=== PATIENT | female | born 1965 | race Caucasian/White ===

== ENCOUNTER 2016-11-09 20:20 | Emergency (ER) | payer OTHER ==
[2016-11-09 20:32] VITALS: BMI 18.8
--- NOTE | 2016-11-09 20:35 | PDOC ---
History of Present Illness - General History Source: Patient Exam Limitations: No Limitations - History of Present Illness Initial Comments: 11/09/16 20:51 The patient is a 51 year old female, with no significant past medical history who presents to the emergency department with allergic reaction. The patient reports about 50 min prior to ER arrival eating a dish with brown peanuts. She reports taking 3 benadryls since consuming the dish. She arrives with diffuse itchiness and a sore throat. She denies any abdominal pain. She denies recent fevers, chills, headache or dizziness. She denies recent nausea, vomit, diarrhea or constipation. She denies recent dysuria, frequency, urgency or hematuria. She denies recent chest pain or shortness of breath. PAST MEDICAL HISTORY: See HPI PAST SURGICAL HISTORY: No significant history. FAMILY HISTORY: No pertinent history. SOCIAL HISTORY: Patient lives with family and is employed. MEDICATIONS: Reviewed. ALLERGIES: As per nursing notes. ROS General: No fevers or chills, no weakness, no weight loss HEENT: No change in vision. + sore throat. No ear pain CardioVascular: No chest pain or shortness of breath Respiratory:No cough, or wheezing. Gastrointestinal: No nausea, vomiting, diarrhea or constipation. No rectal bleeding Genitourinary: No dysuria, hematuria, or frequency Musculoskeletal: No joint or muscle pain or swelling Neurologic: No headache, vertigo, dizziness or loss of consciousness Psychiatric: No depression Skin: No rashes or easy bruising Endocrine: no increased thirst or abnormal weight change Allergic: no skin or latex allergy All other systems reviewed and normal Exam: General: Well-nourished well-developed individual, no acute distress HEENT: Throat: Mild erythema of the angio posterior oral pharynx and ulva Neck: Supple, no meningeal signs, no lymphadenopathy Eyes: Pupils equal reactive and round, extraocular motion intact Chest: Nontender to palpation Cardiac: S1-S2 normal, regular rate and rhythm, no murmurs rubs or gallops Respiratory: Lungs clear to auscultation bilateral Abdomen: Soft, nondistended, normal bowel sounds, nontender to palpation diffusely Extremities: Warm, dry, no cyanosis, clubbing, or edema Skin: Mild erythema of her extremities Neuro: Alert and oriented x3, nonfocal exam, grossly intact, normal gait Psych: Normal mood and affect <Cali Swenson - Last Filed: 11/09/16 20:51> - General History Source: Patient Exam Limitations: No Limitations - History of Present Illness Initial Comments: 11/09/16 22:42 Assessment and plan: This is a 51-year-old female who came in with an ALLERGIC reaction post eating peanuts accidentally in some CURRENT food. Patient had a relatively mildly reaction had taken Benadryl prior to coming in was given Decadron here in the emergency room Patient's symptoms completely resolved and she was comfortable after observation for 3 hours she will be discharged. Prescription for Medrol Dosepak was sent to the pharmacy <Dada Gotti I - Last Filed: 11/09/16 22:44> - General Chief Complaint: Allergic Reaction Stated Complaint: SCRATCHY THROAT, ATE A NUT Time Seen by Provider: 11/09/16 20:23 Past History <Cali Swenson - Last Filed: 11/09/16 20:51> - Past Medical History Asthma: Yes Cardiac Disorders: Yes (SVT) - Psycho/Social/Smoking Cessation Hx Anxiety: No Suicidal Ideation: No Smoking History: Never smoked Have you smoked in the past 12 months: No Information on smoking cessation initiated: No Hx Alcohol Use: No Drug/Substance Use Hx: No Substance Use Type: None <Dada Gotti I - Last Filed: 11/09/16 22:44> - Past Medical History Allergies/Adverse Reactions: Allergies Allergy/AdvReac Type Severity Reaction Status Date / Time aspirin Allergy Verified 11/09/16 20:23 peanut Allergy Verified 11/09/16 20:23 tree nut Allergy Verified 11/09/16 20:23 Home Medications: Ambulatory Orders Albuterol Sulfate Inhaler - [Ventolin Hfa Inhaler -] 1 - 2 inh PO QID 11/09/16 *Physical Exam - Vital Signs Last Vital Signs Temp Pulse Resp BP Pulse Ox 98.7 F 77 18 131/80 100 11/09/16 20:20 11/09/16 20:20 11/09/16 20:20 11/09/16 20:20 11/09/16 20:20 <Cali Swenson - Last Filed: 11/09/16 20:51> - Vital Signs Last Vital Signs Temp Pulse Resp BP Pulse Ox 98.7 F 77 18 131/80 100 11/09/16 20:20 11/09/16 20:20 11/09/16 20:20 11/09/16 20:20 11/09/16 20:20 <Dada Gotti I - Last Filed: 11/09/16 22:44> *DC/Admit/Observation/Transfer - Attestations Scribe Attestion: 11/09/16 20:51 Documentation prepared by Cali Swenson, acting as medical office secretary for Dada Gotti MD. <Cali Swenson - Last Filed: 11/09/16 20:51> - Discharge Dispostion Admit: No <Dada Gotti I - Last Filed: 11/09/16 22:44> Diagnosis at time of Disposition: Food allergy, peanut - Discharge Dispostion Disposition: HOME Condition at time of disposition: Stable - Patient Instructions Printed Discharge Instructions: DI for Adverse Drug Reaction -- Allergic Additional Instructions: You can continue to take Benadryl one or 2 tablets as often as every 4-6 hours if needed if any symptoms start to come back. In addition to that get the prescription filled for the Medrol Dosepak and take the dosepak as prescribed on the pack. Return to the emergency department immediately with ANY new, persistent or worsening symptoms. Continue any medications as previously prescribed by your physician. You should follow up with your primary doctor as soon as possible regarding today's emergency department visit. . Please make sure your doctor reviews the results of your emergency evaluation. Thank you for coming to the Emergency Department today for your care. It was a pleasure to see you today. Please note that your evaluation is INCOMPLETE until you follow-up with your doctor.
[2016-11-09] MEDS ORDERED: DEXAMETHASONE SOD PHOSPHATE 10 MG/1 ML VIAL IVPUSH ONE (20:45)
[2016-11-09] MEDS ORDERED: DEXAMETHASONE SOD PHOSPHATE 10 MG/1 ML VIAL ONE (20:45)
[2016-11-09 21:05] VITALS: BP 125/68; PULSE 69; TEMP 98.8
== END 2016-11-09 22:47 | disposition home or self-care (01) ==
LOC: FER 20:20
PROC: 3E033GC Introduction of Other Therapeutic Substance into Peripheral Vein, Percutaneous Approach (ICD-10-PCS; principal; 2016-11-09)
DX: T78.1XXA Other adverse food reactions, not elsewhere classified, initial encounter (principal); Z91.010 Allergy to peanuts; J45.909 Unspecified asthma, uncomplicated; I47.1 Supraventricular tachycardia
CPT/HCPCS: 99283-25